=== PATIENT | female | born 1960 | race Caucasian/White ===

== ENCOUNTER 2019-08-05 08:05 | Day surgery (SDC) | payer OTHER ==
[2019-07-26 14:40] LABS: HEMATOCRIT 35.8 % (37.0-47.0); MCH 29.8 pg (26.0-34.0); MCHC 33.5 g/dL (28.0-37.0); RBC 4.02 mil/uL (4.20-5.00); WBC 8.4 thou/uL (4.0-11.0)
[2019-07-26 14:43] LABS: URINE BILIRUBIN NEGATIVE (Negative); URINE BLOOD NEGATIVE (Negative); URINE CLARITY CLEAR; URINE COLOR YELLOW; URINE GLUCOSE-RANDOM* NEGATIVE (Negative); URINE KETONES NEGATIVE (Negative); URINE LEUKOCYTES-REFLEX NEGATIVE (Negative); URINE NITRITE-REFLEX NEGATIVE (Negative); URINE PROTEIN (DIPSTICK) NEGATIVE (Negative); URINE SPECIFIC GRAVITY >= 1.030 (1.005-1.035); URINE UROBILINOGEN 0.2 E.U./dl (0.2-1.0)
[2019-07-26 14:50] LABS: ALBUMIN 3.7 g/dL (3.4-5.0); CALCIUM 8.3 mg/dL (8.5-10.1); CREATININE 0.9 mg/dL (0.6-1.0); POTASSIUM 4.6 mmol/L (3.5-5.1)
[2019-07-26 14:53] LABS: PROTIME 9.4 Seconds (9.3-11.4)
--- NOTE | 2019-07-26 15:26 | EKG ---
[facility] [place] [address] ELECTROCARDIOGRAM REPORT Name: AMBERDOLORES RUBEN Room #: PRE [facility] M.R.#: [id number] Admission: Attend Phys: Bobby Knox MD Discharge: Date of : 62 Report #: [id number] THIS REPORT FOR: cc: Manohar Nava MD, Darren E. MD Couchonnal,Kirill Yu MD ~ THIS REPORT FOR: //name// [facility] Test Date: 2019-07-26 Test Time: 13:59:11 Pat Name: DOLORES CLARK Department: Room: Gender: F Department Clerk: Brayan GUDINO : 1960 Requested By: Bobby Knox Order Number: [id number] MD: Kirill Barlow Measurements Intervals [place] Rate: 84 P: 26 DE: 195 QRS: 3 QRSD: 90 T: 18 QT: 353 QTc: 418 Interpretive Statements Sinus rhythm Left ventricular hypertrophy No previous ECG available for comparison Electronically Signed On 07-26-2019 15:25:24 DIESEL ENGINE MECHANIC by Kirill Barlow [email or web address] <ELECTRONICALLY SIGNED> By: Kirill Barlow MD 07/26/19 1525 [id number] Kirill Barlow MD /GERMÁN
[~2019-08-05] VITALS: Ht 162.6 cm; Wt 80.3 kg
[~2019-08-05 08:05] MED LIST: ABILIFY10 MG PO; ADVIL200 M3 PO; AMITRIPTYLINE H25 M2 PO; CLEOCIN HCL150 MG PO; DIAZEPAM 5 MG5 M1 PO; DIOVAN320 MG PO; DIOVAN40 MG; DIPHENHIST50 MG PO; DULOXETINE HCL60 MG PO; HYDROCODON-ACE1 EAC8 PO; HYDROCODONE-AP1 EAC6 PO; LANSOPRAZOLE30 MG PO; LEXAPRO 10 MG T10 M1 PO; MOBIC15 MG PO; MULTI-VITAMIN1 EAC5 PO; PANTOPRAZOLE SO40 M1 PO; PHENERGAN 25 MG25 MG PO; PREVACID15 MG PO; RESTORIL15 MG PO; RIZATRIPTAN10 M1 PO; RIZATRIPTAN5 MG PO; SINGULAIR 10 MG10 M1 PO; TRAMADOL 50 MG50 MG PO; ZOFRAN ODT4 MG PO
[2019-08-05 08:55] VITALS: BP 157/66
[2019-08-05 14:00] VITALS: BP 127/82
[2019-08-05 19:06] VITALS: BP 125/70
--- NOTE | 2019-08-05 19:59 | NUR ---
ASSUMED CARE OF THE PT AT 1400. PT IS UP TO BSC, R LEG IS VERY WEAK UPON STANDING. PT IS RA. REG DIET. R FA DRY AND INTACT. MODESTO LUIS, SCD'D AND POLAR PACK AND PLCAE. FALL PRECAUTIONS IN PLACE, BED IN THE LOWEST POSITION AND CALL LIGHT IS IWTHIJoe GONZALES. WILL CONTINUE TO MONITOR THE PT.
--- NOTE | 2019-08-06 03:42 | NUR ---
ASSESSED AT PT A&OX4 DENIES PAIN. IV INTACT AND FLUIDS INFUISING. UP WITH ASSISTX1 TO BSC WITH WALKER. SCD'S, POLAR PACK AND DRESSING INTACT ON RT KNEE. FALL PREC IN PLACE AND CALL IGHT IN REACH WILL CONT WITH POC TILL EOS.
[2019-08-06 04:09] VITALS: BP 112/57
[2019-08-06 05:18] LABS: HEMATOCRIT 30.6 % (37.0-47.0); HEMOGLOBIN 9.9 gm/dL (12.0-15.0); MCH 29.1 pg (26.0-34.0); MCHC 32.3 g/dL (28.0-37.0); MCV 90.2 fL (80.0-100.0); RBC 3.4 mil/uL (4.20-5.00); WBC 15.5 thou/uL (4.0-11.0)
[2019-08-06 07:45] VITALS: BP 118/62
[2019-08-06 08:03] VITALS: BP 118/62
--- NOTE | 2019-08-06 10:14 | NUR ---
PT CARE ASSUMED AT 0700. A&Ox4. MAURIZIO DRESSING INTACT. SCD'S AND POLAR PACK IN PLACE. PT IS NOT COMPLAINING OF ANY PAIN AND HAS ONLY RECEIVED A DOSE FOR PT. IV IS PATENT WITH NO REDNESS OR SWELLING. POST OP FLUIDS INFUSING. PT IS UP TO THE BATHROOM WITH STANDBY AND A WALKER. FALL PROTOCOL IN PLACE. CALL LIGHT IN REACH. IN THE ROOM. MAURIZIO DRESSING INTACT WITH NO DRAINAGE.
[2019-08-06] MEDS ORDERED: NEURONTIN 300300 M1 PO (12:08)
[2019-08-06] MEDS ORDERED: ASPIR 8181 MG PO (12:08)
[2019-08-06 12:11] VITALS: BP 118/62
--- NOTE | 2019-08-06 14:14 | NUR ---
PT ADMITTED RELATED TO RT UNICOMPARTMENTAL KNEE REPLACEMENT. CM REVIEWED CHART AND SPOKE WITH CARE TEAM. CM MET WITH PT AT BEDSIDE THIS DAY. PT IS A&O X4. CM ROLE INTRODUCED. PT INDICATED SHE LIVES IN A HOUSE WITH HER SPOUSE WITH NO STEPS TO ENTER AND NO STEPS INSIDE. PT INDICATED SHE HAS A CANE AND FWW FOR HOME USE. PT INDICATED SHE IS SET UP WITH OP PT AT [facility] IN [place]. PT INDICATED SHE PLANS TO RETURN HOME THIS DAY. NO OTHER CM INTERVENTION INDICATED. CASE CLOSED.
--- NOTE | 2019-08-06 14:56 | NUR ---
I have reviewed and concur with student documentation.
--- NOTE | 2019-08-07 12:28 | O ---
[facility] [place] [address] OPERATIVE REPORT Name: DOLORES CLARK Room #: DE[facility] M.Herbert.#: [id number] Admission: 08/05/19 Attend Phys: Bobby Knox MD Discharge: 08/06/19 Date of : 62 Report #: [id number] THIS REPORT FOR: cc: Manohar Nava MD, Darren E. MD Abraham,Bobby Kim MD ~ CC: Manohar Knox DATE OF SERVICE: 08/05/2019 PREOPERATIVE DIAGNOSIS: Right knee medial compartment osteoarthritis. POSTOPERATIVE DIAGNOSIS: Right knee medial compartment osteoarthritis. PROCEDURE: Right medial compartment knee arthroplasty using Navio for robotic assistance. SURGEON: Bobby Knox M.D. VENEER GLUER: Perlita Christy PA-C. INDICATIONS FOR VENEER GLUER: Throughout the case, extensive retraction and manipulation of the knee was required. This was afforded to me by my market research assistant. ANESTHESIA: LMA. TOURNIQUET TIME: 43 minutes. IMPLANTS: Benitez and Nephew size 4 Journey II BCS Oxinium medial femoral component, size 2 tibia, size 10 polyethylene. ESTIMATED BLOOD LOSS: 25 mL. COMPLICATIONS: None. SPECIMENS: None. CONDITION UPON LEAVING THE OPERATING ROOM: Stable. INDICATIONS FOR PROCEDURE: The patient is a 59-year-old female with severe right knee medial compartment osteoarthritis. She had failed conservative measures for this and after discussion with her, she elected for right medial compartment knee arthroplasty. DESCRIPTION OF PROCEDURE: Risks, benefits, alternatives and complications were [facility] [address] [place] [address] OPERATIVE REPORT Name: DOLORES CLARK Room #: DEP [facility] M.Herbert.#: [id number] Admission: 08/05/19 Attend Phys: Bobby Knox MD Discharge: 08/06/19 Date of : 62 Report #: [id number] discussed in detail with the patient including but not limited to risk of anesthesia; risk of damage to nerves, arteries, blood vessels; risk for infection, bleeding; risk for continued knee pain and need for reoperation. Informed consent was obtained from the patient. Right knee was appropriately marked in the preoperative holding area. IV Ancef was given for preoperative antibiotics. Adductor canal block was placed by Anesthesia. She was brought to the operating room and placed in supine position on operating room table. LMA anesthesia was induced without complication. Tourniquet was placed on the right thigh. Right lower extremity was prepped and draped in normal sterile fashion. Timeout was performed properly identifying the patient and procedure as well as the instrumentation and implants. All in the operating room were in agreement. Right lower extremity was exsanguinated, tourniquet was inflated. Tourniquet time was 43 minutes. Standard approach to the medial compartment was then made with 10 blade through the skin. Dissection was taken down sharply to the fascia and deep flaps were developed medially and laterally. Fresh 10 blade was used to make a medial parapatellar arthrotomy and the knee was inspected. There was severe medial compartment osteoarthritis. Lateral compartment and patellofemoral compartments were well maintained. ACL was intact. It was decided to proceed with medial compartment arthroplasty. Reference pins were placed in the femur and the tibia. The knee was then digitally mapped using the Navio system. Intraoperative plan was made and we sized the size 4 femur and a size 2 tibia with a size 10 spacer. After acceptance of the intraoperative plan, the femoral and tibial resections were made with a Navio bur. The remainder of the medial meniscus was removed with Bovie cautery. The tibia was sized, found to be a size 2. A size 2 tibial trial was pinned and drilled. A size 4 femoral trial was placed. This was then trialled with a size 10 polyethylene. Knee was taken through range of motion, found to have a millimeter laxity medially throughout range of motion with good stability. Trial components were removed. Bony ends were thoroughly irrigated with normal saline. A final size 2 tibia, size 4 Journey II BCS Oxinium medial femoral component were cemented in place using standard cementation techniques. While the cement cured, a periarticular injection consisting of morphine, ropivacaine, epinephrine and Toradol was placed around the knee joint capsule. After the cement cured, a final size 10 polyethylene was placed. A gram of vancomycin was placed deep in the joint. Fascia was closed with 0 Vicryl, skin was closed with 2-0 Vicryl, 3-0 Monocryl. Dermabond and a MAURIZIO dressing was applied. The patient tolerated this procedure well and went to recovery room under care of anesthesia postoperatively. <ELECTRONICALLY SIGNED> By: Bobby Knox MD 08/07/19 1228 [id number] Bobby Knox MD /nt
== END 2019-08-06 13:14 | disposition home or self-care (01) ==
LOC: OR 08:05 → TBA 08:06 → OR 08:54 → 4S 15:33 → OR 19:36 → ENTRNSPT 08-06 12:51 → EDTRNSPTSTS 08-06 12:55 → OR 08-06 13:14
PROVIDERS: Orthopaedic Surgery
DX: M17.11 Unilateral primary osteoarthritis, right knee (principal); F32.9 Major depressive disorder, single episode, unspecified; F41.9 Anxiety disorder, unspecified; F17.210 Nicotine dependence, cigarettes, uncomplicated; K21.9 Gastro-esophageal reflux disease without esophagitis; Z98.890 Other specified postprocedural states; Z79.899 Other long term (current) drug therapy; Z79.82 Long term (current) use of aspirin
CPT/HCPCS: 10102; 50010; 50101; 50415; 50954; 51130; 51225; 51320; 52001; 52282; 53078; 53370; 54118; 56527; 56528; 57095; 57103; 57110; 57127; 57180; 62110; 62900; 64043; 65060; 70005

== ENCOUNTER 2020-01-13 17:04 | Inpatient (IN) | payer OTHER ==
[~2020-01-13] VITALS: Ht 165.1 cm; Wt 95.8 kg
[~2020-01-13 17:04] MED LIST changes: +ASPIR 8181 MG PO; +NEURONTIN 300300 M1 PO
[2020-01-13 17:32] VITALS: BP 120/55
[2020-01-13 18:00] LABS: HEMOGLOBIN 11.4 gm/dL (12.0-15.0); MCH 25.3 pg (26.0-34.0); RBC 4.52 mil/uL (4.20-5.00)
[2020-01-13 18:02] LABS: HEMATOCRIT 34.2 % (37.0-47.0); MCHC 33.4 g/dL (28.0-37.0); MCV 75.7 fL (80.0-100.0); PLATELET COUNT 613 thou/uL (150-400); RDW 19.4 % (10.5-14.5)
[2020-01-13 18:04] LABS: ANION GAP 14 mmol/L (7-16); BUN 14 mg/dL (7-18); CHLORIDE 99 mmol/L (98-107); CO2 23 mmol/L (21-32); GLUCOSE 130 mg/dL (74-106); POTASSIUM 3.4 mmol/L (3.5-5.1); SODIUM 136 mmol/L (136-145); WBC 1.2 thou/uL (4.0-11.0)
[2020-01-13 18:13] LABS: BE(vivo) -3.4 mmol/L (-2 to +3); HCO3 20.5 mmol/L (22.0-26.0); PCO2 33.3 mmHg (35.0-45.0); PO2 78.5 mmHg (80.0-100.0); pH 7.408 (7.360-7.450); sO2 95.8 % (92.0-98.0)
[2020-01-13 18:14] LABS: ALBUMIN 2.6 g/dL (3.4-5.0); SGOT 189 U/L (15-37); SGPT 70 U/L (30-65); TOTAL BILIRUBIN 0.5 mg/dL (0.2-1.0); TOTAL PROTEIN 6.6 g/dL (6.4-8.2); TROPONIN-I <0.06 ng/mL (<0.06)
[2020-01-13] MEDS ORDERED: LUNESTA3 MG PO (18:37)
[2020-01-13] MEDS ORDERED: METAXALL800 MG PO (18:38)
[2020-01-13 18:40] LABS: ABSOLUTE NEUTROPHILS 0.3 thou/uL (1.4-8.2); ATYPICAL LYMPHS 6 %; METAMYELOCYTES 1 %; NUCLEATED RBCS 1 /100WBC
[2020-01-13 18:42] LABS: ANISOCYTOSIS 1+; BURR CELLS 1+; LARGE PLATELETS OCCASIONAL; OVALOCYTES FEW; POIKILOCYTOSIS 1+
--- NOTE | 2020-01-13 19:42 | NUR ---
PAPO CLARK - ( IS AN RT) WOULD LIKE UPDATES OF CRITICAL LABS/ POC WHEN AVAILABLE: [phone]
--- NOTE | 2020-01-13 20:06 | NUR ---
ON PHONE WITH FAMILY MEMBER WHO STATES SHE IS REQUESTING HOME MEDICATIONS FOR PAIN.
--- NOTE | 2020-01-13 21:33 | NUR ---
SPOKE W/ PT'S BROTHER AND TO UPDATE ON POC
--- NOTE | 2020-01-13 22:40 | NUR ---
FIRST ATTEMPT AT REPORT CALLED NOW
[2020-01-13 22:44] VITALS: BP 140/66
[2020-01-14 01:03] LABS: HEMOGLOBIN 10.2 gm/dL (12.0-15.0)
[2020-01-14 01:05] LABS: HEMATOCRIT 30.1 % (37.0-47.0); MCH 25.8 pg (26.0-34.0); MCV 75.8 fL (80.0-100.0); RBC 3.97 mil/uL (4.20-5.00); RDW 18.9 % (10.5-14.5)
[2020-01-14 01:06] LABS: CALCIUM 7.3 mg/dL (8.5-10.1); CREATININE 0.8 mg/dL (0.6-1.0); POTASSIUM 3.8 mmol/L (3.5-5.1)
[2020-01-14 01:07] LABS: WBC 0.7 thou/uL (4.0-11.0)
--- NOTE | 2020-01-14 01:10 | NUR ---
notified BOLA OF PTS CRITICAL WBC NO NEW ORDERS
--- NOTE | 2020-01-14 01:58 | NUR ---
SPOKE WITH PULMONOLOGY REGARDING PT. NO NEW ORDERS UNTIL COVID TEST RESULTS ARE IN
--- NOTE | 2020-01-14 03:35 | NUR ---
SPOKE WIH JAKYOA SPOUSE AND PAPO OROURKE, UPDATE ON PT'S PLAN OF CARE GIVEN.
--- NOTE | 2020-01-14 05:49 | NUR ---
MARLI OROURKE CALLED AND UPDATE GIVEN ON PT CARE AND ADMISSION. PT MADE AWARE.
--- NOTE | 2020-01-14 08:01 | EKG ---
[facility] [place] [address] ELECTROCARDIOGRAM REPORT Name: DOLORES CLARK Room #: 170-23 ADM IN M.R.#: [id number] Admission: 01/13/20 Attend Phys: Gunnar Ibrahim MD Discharge: Date of : 62 Report #: [id number] THIS REPORT FOR: cc: Manohar Nava MD, Darren E. MD Lundgren,Bry Bravo MD [facility] ~ THIS REPORT FOR: //name// [facility] ED Test Date: 2020-01-13 Test Time: 18:42:19 Pat Name: DOLORES CLARK Department: Room: 170 Gender: F Wood Drill Operator: jonna : 1960 Requested By: Marifer Jaramillo Order Number: [id number] MD: Bry Hills Measurements Intervals [place] Rate: 94 P: 29 MO: 185 QRS: -5 QRSD: 100 T: 129 QT: 428 QTc: 536 Interpretive Statements Sinus rhythm Abnormal R-wave progression, early transition Left ventricular hypertrophy Nonspecific T abnrm, anterolateral leads Prolonged QT interval Compared to ECG 07/26/2019 13:59:11 T wave abnormality is now present Prolonged QT interval now present Electronically Signed On 01-14-2020 8:01:27 CDT by Bry Hills [email or web address] <ELECTRONICALLY SIGNED> By: Bry Hills MD, [facility] 01/14/20800 41 41 Bry Hills MD, [facility] /EPI
--- NOTE | 2020-01-14 08:48 | NUR ---
HOLD ACKNOWLEDGE DONE TO REQUEST ALL THE MORNING MEDS FROM THE PHARMACY.
--- NOTE | 2020-01-14 09:51 | NUR ---
CALL PHARMACY TO INQUIRE ABOUT THE MEDS. THE PHARMACIST SAID HE WOULD BE SENDING SHORTLY.
[2020-01-14 15:36] VITALS: BP 140/76
--- NOTE | 2020-01-14 18:11 | NUR ---
CALLED RT TO REQUEST PADDING FOR THE PT BI-PAP MASK. RT SAID THEY WOULD BRING IN ON THIER NEXT ROUND.
[2020-01-14 19:07] LABS: BE(vivo) -1.1 mmol/L (-2 to +3); HCO3 23.6 mmol/L (22.0-26.0); PCO2 39.2 mmHg (35.0-45.0); PO2 68.6 mmHg (80.0-100.0); pH 7.397 (7.360-7.450); sO2 93.8 % (92.0-98.0)
[2020-01-15] VITALS (10 sets, daily range): BP systolic 88–150; BP diastolic 32–89
--- NOTE | 2020-01-15 02:56 | NUR ---
GRAM + COCCI IN CULTURE, WILL NOTIFY OCCUPATIONAL HEALTH NURSING DIRECTOR.
[2020-01-15 05:39] LABS: BE(vivo) 0.6 mmol/L (-2 to +3); HCO3 24.5 mmol/L (22.0-26.0); PCO2 36.5 mmHg (35.0-45.0); PO2 59.5 mmHg (80.0-100.0); pH 7.445 (7.360-7.450)
[2020-01-15 06:07] LABS: HEMATOCRIT 30.3 % (37.0-47.0); HEMOGLOBIN 10.1 gm/dL (12.0-15.0); MCH 25.5 pg (26.0-34.0); MCHC 33.4 g/dL (28.0-37.0); MCV 76.4 fL (80.0-100.0); PLATELET COUNT 550 thou/uL (150-400); RBC 3.97 mil/uL (4.20-5.00)
[2020-01-15 06:13] LABS: WBC 1.2 thou/uL (4.0-11.0)
[2020-01-15 06:23] LABS: ALBUMIN 2.5 g/dL (3.4-5.0); CREATININE 0.7 mg/dL (0.6-1.0); TOTAL BILIRUBIN 0.4 mg/dL (0.2-1.0); TOTAL PROTEIN 6.1 g/dL (6.4-8.2)
--- NOTE | 2020-01-15 08:49 | NUR ---
SPOKE TO LORENA AT THE HEALTH DEPARTMENT, EXPLAINED PTS CONDITION
--- NOTE | 2020-01-15 11:43 | NUR ---
PT'S ELLA CALLS AND REQUESTS THAT PT DOES NOT GET TRANSFERED. HE VERBALIZES UNDERSTANDING THAT PT MAY BE INTUBATED, THAT SHE HAS AGREED
[2020-01-15 11:52] LABS: ABSOLUTE NEUTROPHILS 0.1 thou/uL (1.4-8.2); ANISOCYTOSIS 1+; ATYPICAL LYMPHS 3 %
[2020-01-15 11:53] LABS: BURR CELLS FEW; OVALOCYTES FEW; POIKILOCYTOSIS 1+
--- NOTE | 2020-01-15 13:38 | NUR ---
PATIENT WAS ON BIPAP THIS MORNING. SHE HAD STATED THAT SHE WAS TIRED AND WANTING TO BE INTUBATED. DR MCGOVERN WAS NOTIFIED AND THE PATIENT WAS INTUBATED.
[2020-01-15 13:56] LABS: BE(vivo) -4.1 mmol/L (-2 to +3); HCO3 20.3 mmol/L (22.0-26.0); PCO2 34.4 mmHg (35.0-45.0); PO2 163.3 mmHg (80.0-100.0); pH 7.389 (7.360-7.450); sO2 99.1 % (92.0-98.0)
--- NOTE | 2020-01-15 14:39 | NUR ---
VASCULAR ACCESS CONSULTED FOR CVAD IN ER. PT HAS REJ WITH MEDS RUNNING. PT'S LABS,MEDS,HISTORY,ORDER AND CONSENT VERIFIED. MEDICAL NECESSITY BY DR MCGOVERN. CHLOE WAS WIDELY PATENT WITH USG. 25CM 6FR TL POWER JACC INSERTED TO 5CM EXTERNAL. BLEEDING AT SITE GAUZE APPLIED. STAT CXR WILL BE ORDERED AFTER TX TO ICU
[2020-01-15] MEDS ORDERED: TEMAZEPAM15 MG PO (15:30)
[2020-01-15] MEDS ORDERED: RAYOS5 MG PO (15:46)
[2020-01-15] MEDS ORDERED: AZITHROMYCIN500 MG PO (15:53)
--- NOTE | 2020-01-15 15:53 | NUR ---
CXR CONFIRMED PLACEMENT OF LIJ. RELEASED FOR IMMEDIATE USE PER PROTOCOL TO AMINA EDMONDSON
--- NOTE | 2020-01-15 18:26 | NUR ---
PT IS IN A NEW ADMIT VIA THE ER, PT HERE WITH A COVID +VE RESULTS. PT WAS IN ER OVERNIGHT. PT INTUBATED TODAY PRIOR TO ARRIVAL TO ICU. PT WITH SLIGHT FEVER. PT IS A GCS OF 7 CURRENTLY AND IS ON SEDATIVES FOR VENT MANAGEMENT. OTHER VSS. PT ON LEVO FOR BLOOD PRESSURE SUPPORT. FAMILY HAVE BEEN UPDATED ON PT CONDITION.
[2020-01-16] VITALS (20 sets, daily range): BP systolic 105–139; BP diastolic 60–82
--- NOTE | 2020-01-16 01:46 | NUR ---
CONSENT TO GIVE PLASMA OBTAINED FROM PT'S , AWAITING TYPE AND SCREEN RESULTS.
[2020-01-16 06:47] LABS: HEMATOCRIT 28.6 % (37.0-47.0); MCV 77.3 fL (80.0-100.0); RBC 3.7 mil/uL (4.20-5.00)
[2020-01-16 06:48] LABS: HEMOGLOBIN 9.5 gm/dL (12.0-15.0); MCH 25.8 pg (26.0-34.0); MCHC 33.3 g/dL (28.0-37.0); RDW 19.2 % (10.5-14.5)
[2020-01-16 06:55] LABS: CALCIUM 7.7 mg/dL (8.5-10.1); CREATININE 0.7 mg/dL (0.6-1.0); POTASSIUM 3.2 mmol/L (3.5-5.1)
[2020-01-16 07:16] LABS: WBC 1.2 thou/uL (4.0-11.0)
--- NOTE | 2020-01-16 15:03 | NUR ---
ASSESSMENT: CM REVIEWED CHART. CM UNABLE TO SPEAK WITH PATIENT SHE IS CURRENTLY ON THE VENTILATOR AND COVID POSITIVE. CM ATTEMPTED TO REACH OUT TO PATIENTS PAPO BUT UNABLE TO REACH AND VM WAS LEFT. CM REVIEWED CHART AND APPEARS PT LIVES AT HOME WITH HER . PTS BROTHER AND SON WERE RECENTLY TESTED POSITIVE FOR COVID AND PT WAS HAVING TROUBLE WITH SHORTNESS OF BREATH AT HOME AND CAME HOSPITAL. PT IS COVID POSITIVE. CM UNABLE TO GATHER MUCH INFORMATION AT THIS TIME. PT WAS RECENTLY HERE IN [place] FOR A KNEE REPLACEMENT AND PER REPORT LIVES AT HOME WITH HER IN A HOUSE. PER REPORT PT HAS NO STEPS AND HAS A FWW AT HOME. PTS PCP IS DR. JANY GREGORIO. CM WILL CONTINUE FOLLOW PATIENT AND AWAIT FURTHER INPUT FROM .
--- NOTE | 2020-01-16 19:48 | NUR ---
PATIENT REMAINS INTUBATED THIS SHIFT. HAVE BEEN ABLE TO TITRATE SOME SEDATION MEDICATION OFF SUCCESSFULLY. PATIENT TOLERATING WELL. TUBE FEEDING STARTED THIS SHIFT PER ORDERS. FAMILY CALLED AND UPDATED TWICE THIS SHIFT. FALL PRECAUTIONS IN PLACE.
[2020-01-17] VITALS (41 sets, daily range): BP systolic 101–157; BP diastolic 49–89
[2020-01-17 03:11] LABS: CALCIUM 7.7 mg/dL (8.5-10.1); CREATININE 0.7 mg/dL (0.6-1.0)
[2020-01-17 03:28] LABS: HEMOGLOBIN 9.4 gm/dL (12.0-15.0); MCV 76.8 fL (80.0-100.0)
[2020-01-17 03:30] LABS: HEMATOCRIT 28.8 % (37.0-47.0); MCHC 32.6 g/dL (28.0-37.0); RBC 3.75 mil/uL (4.20-5.00); RDW 19.2 % (10.5-14.5)
[2020-01-17 03:42] LABS: WBC 1.2 thou/uL (4.0-11.0)
--- NOTE | 2020-01-17 04:50 | NUR ---
PT STABLE ON THE VENTILATOR, LIGHTLY SEDATED, OPENS EYES AND FOLLOWS COMMANDS, FI02 WEANED DOWN TO 50% PT TOLERATING WELL.CONVALESCENT PLASMA CURRENTLY INFUSING.PAPO (PT'S BROTHER ) CALLED AND WAS UPDATED ON PT'S STATUS.
[2020-01-17 10:40] LABS: BE(vivo) -2.4 mmol/L (-2 to +3); HCO3 22.3 mmol/L (22.0-26.0); PCO2 38.1 mmHg (35.0-45.0); PO2 81.8 mmHg (80.0-100.0); pH 7.386 (7.360-7.450)
--- NOTE | 2020-01-17 11:32 | NUR ---
pt remains intubated, tube feed for nutritional support. noted in chart pt following some commands. no anticpated dc over the weekend, will cont following as needed for dc needs.
--- NOTE | 2020-01-17 15:38 | NUR ---
ASSUMED PATIENT CARE AT 0700, PATIENT INTUBATED AND SEDATED ON VERSED, DILAUDID, AND PRECEDEX. PATIENT DROWSY, EASILY AROUSABLE AND NODS APPRORPIATELY TO QUESTIONS. VSS, FI02 DECR FROM 50TO 40%, TOLERATING WELL. WILL CONTINUE TO MONITOR / POC. PATIENT'S CALLED AND UPDATED ON POC BY THIS RN.
[2020-01-18] VITALS (24 sets, daily range): BP systolic 135–156; BP diastolic 67–87
[2020-01-18 03:02] LABS: HEMOGLOBIN 8.9 gm/dL (12.0-15.0)
[2020-01-18 03:04] LABS: HEMATOCRIT 27.4 % (37.0-47.0); MCH 25.2 pg (26.0-34.0); MCHC 32.5 g/dL (28.0-37.0); MCV 77.7 fL (80.0-100.0); PLATELET COUNT 473 thou/uL (150-400); RBC 3.52 mil/uL (4.20-5.00)
[2020-01-18 03:11] LABS: WBC 0.9 thou/uL (4.0-11.0)
[2020-01-18 03:23] LABS: ALBUMIN 2.5 g/dL (3.4-5.0); CALCIUM 7.5 mg/dL (8.5-10.1); CREATININE 0.5 mg/dL (0.6-1.0); POTASSIUM 3.4 mmol/L (3.5-5.1); TOTAL BILIRUBIN 0.4 mg/dL (0.2-1.0); TOTAL PROTEIN 5.5 g/dL (6.4-8.2)
[2020-01-18 03:42] LABS: ABSOLUTE NEUTROPHILS 0.1 thou/uL (1.4-8.2); ANISOCYTOSIS 2+; LARGE PLATELETS FEW; METAMYELOCYTES 7 %; MYELOCYTES 1 %; NUCLEATED RBCS 8 /100WBC
[2020-01-18 03:43] LABS: POLYCHROMASIA 1+
[2020-01-18 04:49] LABS: BE(vivo) -0.9 mmol/L (-2 to +3); HCO3 23.9 mmol/L (22.0-26.0); PCO2 40.2 mmHg (35.0-45.0); pH 7.392 (7.360-7.450)
--- NOTE | 2020-01-18 07:58 | NUR ---
ASSUME CARE 1900. VITALS STABLE. DECREASED SATS NOTED WITH REST AT SHIFT CHANGE. FIO INCREASED TO 85% WITH PEEP TO 8, TO GET PT UP TO MID 90s. EASILY AROUSABLE WITH A SMALL DECREASE IN SEDATION. ASSESSMENT CHARTED. PROGRESSING SLOWLY WITH POC. WBC CONTINUES TO DECREASE AT A CRITICALLY LOW RATE. PLAN IS TO CONTINUE TO MONITOR AND WEAN PT OFF VENT, CONTINUE ABX THERAPY FOR IMPROVED overall healthcare. WILL CONTINUE TO MONITOR AND FOLLOW WITH POC
--- NOTE | 2020-01-18 17:33 | NUR ---
ASSUMED PT CARE AT 0700; PT. SEDATED ON VERSED, PRECEDEX AND DILAUDID. PATIENT AWAKENS WITH CARES, MINIMALLY FOLLOWS COMMANDS. INCR. 02 REQUIREMENTS - FI02 UP TO 90%, PEEP 10 PATIENT DESATS WITH WEANING ATTEMPTS. CALLED AND UPDATED ON STATUS AND POC.
--- NOTE | 2020-01-18 23:04 | NUR ---
RETURNED CALL TO PAPO CLARK, (PT'S ) AND GAVE AN UPDATE. PT CURRENTLY AT 90% FI02 , PEEP 10, SATS 97% WITH NOTICEABLE WORK OF BREATHING. PT IS SEDATED OPENS EYES TO STIMULATION BUT DOES NOT FOLLOW COMMANDS.
[2020-01-19] VITALS (24 sets, daily range): BP systolic 131–165; BP diastolic 70–95
[2020-01-19 03:53] LABS: HCO3 26.8 mmol/L (22.0-26.0); PCO2 48.5 mmHg (35.0-45.0); sO2 95.7 % (92.0-98.0)
[2020-01-19 06:05] LABS: HEMOGLOBIN 9.2 gm/dL (12.0-15.0)
[2020-01-19 06:08] LABS: MCH 25.6 pg (26.0-34.0); MCHC 32.8 g/dL (28.0-37.0); MCV 78.1 fL (80.0-100.0); RBC 3.59 mil/uL (4.20-5.00); RDW 19.7 % (10.5-14.5)
[2020-01-19 06:25] LABS: WBC 1.9 thou/uL (4.0-11.0)
[2020-01-19 06:26] LABS: PLATELET COUNT 569 thou/uL (150-400)
[2020-01-19 06:37] LABS: ALBUMIN 2.7 g/dL (3.4-5.0); CALCIUM 7.7 mg/dL (8.5-10.1); CREATININE 0.7 mg/dL (0.6-1.0); POTASSIUM 3.2 mmol/L (3.5-5.1); TOTAL BILIRUBIN 0.5 mg/dL (0.2-1.0); TOTAL PROTEIN 5.8 g/dL (6.4-8.2)
[2020-01-19 08:49] LABS: ABSOLUTE NEUTROPHILS 0.4 thou/uL (1.4-8.2); ANISOCYTOSIS 2+; NUCLEATED RBCS 3 /100WBC; PLATELET ESTIMATE NORMAL
--- NOTE | 2020-01-19 17:50 | NUR ---
ASSUMMED PT CARE AT APPROXIMATELY 0700. PT SEDATED AND ON VENTILATOR. PT RESPONDS TO PAINFUL STIMULI. VITAL SIGNS STABLE. BLOOD SUGARS STABLE. INFORMED DR. PEARCE OF PT'S MORNING RESIDUAL AMOUNT. DR. PEARCE STATED UNDERSTANDING AND STATED TO HOLD TUBE FEEDINGS. WILL CONTINUE TO MONITOR RESIDUAL. ORDER IMPLEMENTED. PT COMFORTABLE IN BED. PT DENIES HAVING FURTHER CONCERNS.
[2020-01-20] VITALS (22 sets, daily range): BP systolic 132–165; BP diastolic 74–87
[2020-01-20 05:13] LABS: BE(vivo) 5.6 mmol/L (-2 to +3); PCO2 49.5 mmHg (35.0-45.0); PO2 87.5 mmHg (80.0-100.0); pH 7.415 (7.360-7.450); sO2 96.7 % (92.0-98.0)
[2020-01-20 06:41] LABS: HEMATOCRIT 28.7 % (37.0-47.0); HEMOGLOBIN 9.8 gm/dL (12.0-15.0); MCH 26.4 pg (26.0-34.0); MCHC 34.1 g/dL (28.0-37.0); MCV 77.4 fL (80.0-100.0); PLATELET COUNT 526 thou/uL (150-400); WBC 3.5 thou/uL (4.0-11.0)
[2020-01-20 07:16] LABS: ALBUMIN 2.7 g/dL (3.4-5.0); CALCIUM 8.1 mg/dL (8.5-10.1); CREATININE 0.5 mg/dL (0.6-1.0); POTASSIUM 3.4 mmol/L (3.5-5.1); TOTAL BILIRUBIN 0.6 mg/dL (0.2-1.0)
--- NOTE | 2020-01-20 09:00 | NUR ---
chart review. pt remains on vent with tube feeding for nutritional support. consults for hem/onc. will cont following as needed for dc needs.
--- NOTE | 2020-01-20 10:52 | NUR ---
Nutrition: To best meet needs and promote GI tolerance, REC change tube feeding formula to Vital HP to reach 50 mL/hr. Consider initiation of bowel regimen due to no BM x several days reported.
[2020-01-20 13:07] LABS: HEMOGLOBIN 9.2 g/dL (11.1-15.9)
[2020-01-20 14:03] LABS: ABSOLUTE NEUTROPHILS 2.2 thou/uL (1.4-8.2); ANISOCYTOSIS 1+; PLATELET ESTIMATE NORMAL
--- NOTE | 2020-01-20 19:12 | NUR ---
ASSUMED CARE AT 0700. PT STARTED ON BUILD AND RELEASE MANAGER JEVITY AT 15MLS/HR. RESIDUALS TODAY HAVE BEEN 20, 25, 50. PT GIVEN REGLAN X1 TODAY. FERMENTER CHAMPAGNE REC STATED TO SWITCH FROM JEVITY TO VITAL HP WITH A GOAL OF 50MLS/HR. PT CURRENTLY HAS JEVITY AT 15MLS/HR. DR. PEARCE ROUNDED AND STATED TO COMPLETE THIS BOTTLE OF JEVITY AND THEN SWITCH TO VITAL HP. THIS INFORMATION PASSED ON TO NIGHT RN.
--- NOTE | 2020-01-20 23:13 | NUR ---
MOVED PT TO ROOM 245 AT 2200, CARE TRANSFERRED TO VLAD EDMONDSON, UPDATED PAPO CLARK ABOUT THE NEW ROOM. PT WELL SEDATED AND TOLERTATED WELL, RT PRESENT MANAGING THE VENTILATOR. ALL PT'S BELONGINGS SENT WITH PT TO THE NEW ROOM.
[2020-01-21] VITALS (26 sets, daily range): BP systolic 103–177; BP diastolic 55–90
[2020-01-21 06:07] LABS: HEMOGLOBIN 10.1 gm/dL (12.0-15.0); MCH 25.3 pg (26.0-34.0); MCHC 32.6 g/dL (28.0-37.0); MCV 77.6 fL (80.0-100.0); RDW 18.8 % (10.5-14.5); WBC 4.6 thou/uL (4.0-11.0)
[2020-01-21 06:28] LABS: CREATININE 0.6 mg/dL (0.6-1.0); POTASSIUM 3.3 mmol/L (3.5-5.1)
[2020-01-21 08:07] LABS: HIV ANTIBODY Non Reactive (Non Reactive)
--- NOTE | 2020-01-21 08:44 | NUR ---
SEE Wiper FOR ASSESSMENT. PT AWAKENS EASILY WHEN LIGHTENED FROM SEDATION, PROGRESSING TOWARD GOALS FI02 DOWN TO .60 AND PEEP 10. VS WNL. SR ON MONITOR. GOOD UO. TF INFUSING ORDERED, RESIDUALS REMAIN LOW. CONT PLAN OF CARE
--- NOTE | 2020-01-21 15:18 | NUR ---
Patient still requiring heavy mechnical ventilation assistance and is therefore not prgoressing towards goals. Patient remains on Versed and precedex drip. This morning during shift change, patient became awake and tried pulling out her ET but didnt. Patient did manage to pull out her OG tube though. DEBO Montejo, reinserted one and placement was confirmed by XRAY. Tube feeding and oral medications resumed. Patient received new orders for Hydralyzine, due to high BPs. Blood pressure stable since administration.
[2020-01-22] VITALS (55 sets, daily range): BP systolic 92–188; BP diastolic 44–98
[2020-01-22 06:10] LABS: HEMATOCRIT 30.8 % (37.0-47.0); HEMOGLOBIN 10.1 gm/dL (12.0-15.0); MCH 25.4 pg (26.0-34.0); MCHC 32.7 g/dL (28.0-37.0); MCV 77.7 fL (80.0-100.0); RBC 3.96 mil/uL (4.20-5.00); RDW 18.8 % (10.5-14.5); WBC 5.6 thou/uL (4.0-11.0)
--- NOTE | 2020-01-22 06:32 | NUR ---
Around 0400 pt rhythm had been SR/SB majority of night. Pt HR creeped up to 100-130s up and down until around 0540. Pt was satting 91-93% on vent Fio2 50%. Went into pt room and suctioned pt through ETT and orally without much rhythm change. Pt o2 sat did increase to now 97% same FIo2. Got orders for labs and ekg order. Pt ekg SR with PACs. labs sent.
[2020-01-22 06:34] LABS: CREATININE 0.6 mg/dL (0.6-1.0)
[2020-01-22 06:48] LABS: POTASSIUM 3.1 mmol/L (3.5-5.1)
--- NOTE | 2020-01-22 07:54 | EKG ---
[facility] [place] [address] ELECTROCARDIOGRAM REPORT Name: DOLORES CLARK Room #: 245-P ADM IN M.R.#: [id number] Admission: 01/13/20 Attend Phys: Gunnar Ibrahim MD Discharge: Date of : 62 Report #: [id number] THIS REPORT FOR: cc: Manohar Nava MD, Darren E. MD Lundgren,Bry Bravo MD [facility] ~ THIS REPORT FOR: //name// 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: TWYLA : 1960 Requested By: Lakeisha Ross Order Number: [id number] MD: Bry Hills Measurements Intervals [place] Rate: 68 P: 29 IN: 185 QRS: 10 QRSD: 89 T: 34 QT: 377 QTc: 401 Interpretive Statements Sinus rhythm Atrial premature complexes Borderline T abnormalities, anterior leads Compared to ECG 01/13/2020 18:42:19 Atrial premature complex(es) now present Prolonged QT interval no longer present Electronically Signed On 01-22-2020 7:53:48 CDT by Bry Hills [email or web address] <ELECTRONICALLY SIGNED> By: Bry Hills MD, FACC 01/22/20 0753 0553 0553 Bry Hills MD, FAC /EPI
--- NOTE | 2020-01-22 18:32 | NUR ---
INTUBATED SEDATED. PRECEDEX, VERSED AND DIULADID GTT FOR SEDATION. PATIENT OPENS EYES TO VOICE, FOLLOWS SOME COMMANDS OFF AND ON. CALLED TWICE TODAY FOR UPDATES. 50%FIO2 PEEP 10. TUBE FEEDS AT GOAL OF 50ML/HR. LEFT IJ.
[2020-01-23] VITALS (30 sets, daily range): BP systolic 110–166; BP diastolic 64–89
[2020-01-23 06:45] LABS: CALCIUM 7.6 mg/dL (8.5-10.1); CREATININE 0.5 mg/dL (0.6-1.0); POTASSIUM 4.1 mmol/L (3.5-5.1)
--- NOTE | 2020-01-23 18:54 | NUR ---
PATIENT SEDATED WITH PRECEDEX, VERSED AND DILADID. PATIENT AWAKE AND FOLLOWING COMMANDS. WEANED TO 8 PEEP ON VENTILATOR. SPOKE WITH FAMILY X2 TODAY FOR UPDATES. LEFT IJ. 50% FIO2. BOND WITH ADEQUATE URINE OUTPUT.
[2020-01-24] VITALS (23 sets, daily range): BP systolic 99–153; BP diastolic 55–83
[2020-01-24 05:36] LABS: HEMATOCRIT 29.3 % (37.0-47.0); HEMOGLOBIN 9.8 gm/dL (12.0-15.0); MCH 26.3 pg (26.0-34.0); MCHC 33.3 g/dL (28.0-37.0); MCV 79.1 fL (80.0-100.0); RBC 3.71 mil/uL (4.20-5.00); RDW 19.3 % (10.5-14.5)
[2020-01-24 05:47] LABS: CALCIUM 7.4 mg/dL (8.5-10.1); CREATININE 0.5 mg/dL (0.6-1.0); POTASSIUM 3.5 mmol/L (3.5-5.1)
[2020-01-24 09:02] LABS: BE(vivo) 1.6 mmol/L (-2 to +3); HCO3 26.2 mmol/L (22.0-26.0); PCO2 41.2 mmHg (35.0-45.0); PO2 77.1 mmHg (80.0-100.0); pH 7.421 (7.360-7.450); sO2 95.6 % (92.0-98.0)
--- NOTE | 2020-01-24 09:53 | NUR ---
EMAILED SANDOR WITH MED ASSIST TO SCREEN FOR MEDICAID PER [facility] REVIEW ON 01/23/20. ICU CM UPDATED.
--- NOTE | 2020-01-24 14:26 | NUR ---
chart review. pt remains on vent, tube feed for nutritional support. no anticipated dc over weekend will cont following as needed for dc needs.
--- NOTE | 2020-01-24 15:55 | NUR ---
ATTEMPTED TO CPAP TRIAL PS 5/5 FI02 45%, PT ALMOST IMMEDIATELY DESATURATED IN MID 80"S, REQUIRED BAGGING AT 100% TO MEET O2 DEMAND. PT NOW ON PEEP 6, FI02 60%, O2 SAT 93%. SPOKE WITH VIA TELEPHONE REGARDING POC, CPAP TRIAL, DECREASING SEDATION, PT CURRENT MENTATION (FOLLOW COMMANDS, NODS APPROPRITELY Y/N) HE AGREES WITH PLAN AND IS PLEASED WITH PT PROGRESS SO FAR. PT VITAL SIGNS REMAIN STABLE AND IS AFEBRILE.
[2020-01-25] VITALS (24 sets, daily range): BP systolic 108–155; BP diastolic 60–117
[2020-01-25 05:50] LABS: CALCIUM 7.8 mg/dL (8.5-10.1); CREATININE 0.5 mg/dL (0.6-1.0)
--- NOTE | 2020-01-25 09:59 | NUR ---
ASSUMED CARE AT 0700, ASSESSMENT AND VITAL SIGNS COMPLETED PER ICU PROTOCOL. DR. DYANA BOWIE, PLAN OF CARE DISCUSSED, RN WILL CONTINUE TO MONITOR.
[2020-01-26] VITALS (24 sets, daily range): BP systolic 107–145; BP diastolic 34–85
[2020-01-26 06:04] LABS: CALCIUM 7.8 mg/dL (8.5-10.1); CREATININE 0.6 mg/dL (0.6-1.0); POTASSIUM 4.3 mmol/L (3.5-5.1)
--- NOTE | 2020-01-26 07:12 | NUR ---
Spoke to Pt's brother and and updated them about her status and vent settings. will call back later today with the day nurse. no significant changes duriing noc shift
--- NOTE | 2020-01-26 19:27 | NUR ---
PT'S CALLED WAS UPDATED ON PT CONDITION FROM RN. PT CALM TODAY. PT HAD GOOD URINE OUTPUT. PT'S BLUE PORT OF CENTRAL LINE WOULD NOT FLUSH OR DRAW BLOOD. IV TEAM CONSULTED AND CATHFLOWED BLUE PORT. BLUE PORT IS NOW WORKING TO FLUSH AND DRAW BLOOD. PT HAD SMEAR OF BM TODAY BUT NO SIGNIFICANT BOWEL MOVEMENT YET. PT TOLERATING TUBE FEEDING. SEE RESIDUAL CHARTING. PT WAS TURNED SHE WAS ABLE TO TOLERATE. SKIN INTACT.
[2020-01-27] VITALS (24 sets, daily range): BP systolic 116–164; BP diastolic 69–91
[2020-01-27 03:59] LABS: HCO3 28.9 mmol/L (22.0-26.0); PCO2 50.6 mmHg (35.0-45.0); PO2 70.4 mmHg (80.0-100.0); pH 7.374 (7.360-7.450); sO2 93.6 % (92.0-98.0)
[2020-01-27 06:08] LABS: HEMATOCRIT 29.4 % (37.0-47.0); HEMOGLOBIN 9.7 gm/dL (12.0-15.0); MCH 26.5 pg (26.0-34.0); MCHC 33.1 g/dL (28.0-37.0); MCV 80.2 fL (80.0-100.0); RBC 3.66 mil/uL (4.20-5.00); RDW 19.7 % (10.5-14.5); WBC 13.6 thou/uL (4.0-11.0)
[2020-01-27 06:24] LABS: CALCIUM 8.2 mg/dL (8.5-10.1); CREATININE 0.5 mg/dL (0.6-1.0); MAGNESIUM 2.1 mg/dL (1.8-2.4); POTASSIUM 4.2 mmol/L (3.5-5.1)
--- NOTE | 2020-01-27 06:24 | NUR ---
Gave update to both brother and on pt status. no significant events overnight. continue to monitor
--- NOTE | 2020-01-27 09:59 | NUR ---
Nutrition: No recent BM documented. Noted smear on 01/26. REC bowel regimen.
--- NOTE | 2020-01-27 11:14 | NUR ---
SPOKE WITH PATIENT'S , PAPO AND UPDATED HIM ON HER CONDITIONS. QUESTIONS ANSWERED AND REASSURANCE GIVEN.
--- NOTE | 2020-01-27 17:08 | NUR ---
UPDATED PATIENT'S PAPO.
--- NOTE | 2020-01-27 18:43 | NUR ---
Patient is stable and slowly progressing towards outcome goals as evident by, remains sedated and arouses, opens eyes and moves hands around. Monitor showing NSR with occ rare PAC noted. Vent setting unchanged. O2 sat 93 to 97% today. Tolerating tube feedings. Urine output adequate via tlobert.
[2020-01-28] VITALS (18 sets, daily range): BP systolic 111–164; BP diastolic 62–122
[2020-01-28 05:15] LABS: HEMATOCRIT 29.7 % (37.0-47.0); HEMOGLOBIN 9.5 gm/dL (12.0-15.0); MCH 25.7 pg (26.0-34.0); MCHC 32.1 g/dL (28.0-37.0); MCV 80.1 fL (80.0-100.0); RBC 3.71 mil/uL (4.20-5.00); RDW 19.9 % (10.5-14.5); WBC 15.8 thou/uL (4.0-11.0)
[2020-01-28 05:30] LABS: CALCIUM 8.1 mg/dL (8.5-10.1); CREATININE 0.5 mg/dL (0.6-1.0); POTASSIUM 4.6 mmol/L (3.5-5.1)
--- NOTE | 2020-01-28 09:13 | NUR ---
DR. CREWS AND DR. DORSEY ROUNDED. PATIENT RESTLESS ON VERSED, PRECEDEX, AND DILUADED GTT. NOT OXYGENATING WELL WHEN RESTLESS. ORDERS TO CHANGE SEDATION TO PROPOFOL GTT. PRN MORPHINE NEEDED PER DR. CREWS. CONSULTS CALLED TO DR. VICENTE FOR TRACH AND PEG PLACEMENT SINCE PATIENT IS NOT WEENING OFF VENT AND REQUIRING HIGH SUPPORT.
--- NOTE | 2020-01-28 10:42 | NUR ---
pt remains intubated with tube feeding for nutritional support. noted per chart consult for possible trach and peg. will cont following as needed for dc needs.
[2020-01-29] VITALS (55 sets, daily range): BP systolic 75–160; BP diastolic 36–106
[2020-01-29 05:46] LABS: HEMATOCRIT 28.4 % (37.0-47.0); MCH 25.8 pg (26.0-34.0); MCHC 31.6 g/dL (28.0-37.0); MCV 81.6 fL (80.0-100.0); RBC 3.48 mil/uL (4.20-5.00); RDW 20.9 % (10.5-14.5); WBC 20.4 thou/uL (4.0-11.0)
[2020-01-29 05:52] LABS: PROTIME 10.3 Seconds (9.3-11.4)
[2020-01-29 05:58] LABS: CALCIUM 8.2 mg/dL (8.5-10.1); CREATININE 0.5 mg/dL (0.6-1.0); POTASSIUM 3.9 mmol/L (3.5-5.1)
--- NOTE | 2020-01-29 07:41 | NUR ---
DURING NOC SHIFT, PT'S VENT WAS ALARMING IN WHICH RT CHECKED MULTIPLE TIMES. PT HAS COPIOUS SECRETIONS WITH DARK VENUS TINGED SALIVA. WITH PT'S AM CHEST XRAY, IT WAS SHOWING THAT THE ET TUBE WAS OUT OF PLACE WHICH WAS CONFIRMED BY RADIOLOGY @ 645. DR. CREWS WAS PAGED AND RETURN CALL BACK AT 0545 AND UPDATED ON PT'S CONDITION AND SYPTOMS CONCERNING THE VENT. DR. CREWS WILL ADDRESS THE ISSUE THIS AM WHEN HE ROUNDS AND ADDED A ABG TO BE DONE. DR. CREWS IS AWARE THAT PT'S SATS ARE 97% WHEN THE VENT IS NOT ALARMING. WITH RT'S SUGGESTION TO NOT MOVE PT UNTIL ADDRESSED THE ET TUBE AND POSSIBLE REINTUBATION. REPORT GIVEN TO ABELARDO RN AND ALLYSON RN.
--- NOTE | 2020-01-29 08:46 | NUR ---
This RN to bedside. Per report and CXR patients ET is not in the correct placement. Dr. Batista aware and will assess on rounding. May re-intubate today. Patient satting fine. Dark, black drainage from OG tube. No turns per RT and Dr. Batista until ET tube reassessed.
--- NOTE | 2020-01-29 12:05 | NUR ---
Pt extubated and reu-intubated by Dr. Batista at 1045. ET tube secured at 26 at the bite block. OG tube palced at 65 at the lip. CXR confirmed placement. Briefly talked to , Kevon, and updated him on patients care. Told to check in a couple hours.
--- NOTE | 2020-01-29 12:51 | NUR ---
Nurse talked with Dr. Batista in regards to the output of OG tube. The color is dark black with some bright red color. This in conjunction with the down trending Hbg, nurse informed physician. Orders received to flush tube with 200ml, then aspirate back and assess color of contents. To consult GI and hold tube feeding. Nurse informed this to patients primary RN for continuation of care.
--- NOTE | 2020-01-29 12:53 | NUR ---
This RN spoke to Kevon Henderson at 1245 to give him an update. Discussed re-intubation and how patient tolerated procedure. Also went over gtts and vitals with . Patient is recovering from intubation and resting now.
--- NOTE | 2020-01-29 14:39 | NUR ---
Nurse talked with Kevon, patients spouse, he expressed he missed a call from Nan from GI services. Nurse updated him on reasoning for her consult and her call. Then nurse called Nan and she expressed she will call him back. Patients spouse expressed that she had a Esophageal bleed in February 2019 and Mario last year. Nurse asked if she had a scope and he expressed he is not sure what they did. He expressed she takes protonix at home for this.
--- NOTE | 2020-01-29 17:55 | NUR ---
This RN, talked to Kevon Henderson, , and [id number], Kevon Castaneda, at 1745 today. Patients family had questions regarding care. Discussed GI consult, and answered questions about labs. Updated on status and family was very appreciative and understanding. Patient still requiring heavy mechanical assistance and is therefore not progressing towards big goals but remains stable on the ventilator.
[2020-01-30] VITALS (35 sets, daily range): BP systolic 72–137; BP diastolic 34–76
[2020-01-30 03:41] LABS: HEMATOCRIT 26.3 % (37.0-47.0); HEMOGLOBIN 8.1 gm/dL (12.0-15.0); MCH 25.5 pg (26.0-34.0); MCHC 30.7 g/dL (28.0-37.0); MCV 82.8 fL (80.0-100.0); RBC 3.17 mil/uL (4.20-5.00); WBC 21.9 thou/uL (4.0-11.0)
[2020-01-30 04:07] LABS: ALBUMIN 2.1 g/dL (3.4-5.0); CREATININE 0.9 mg/dL (0.6-1.0); POTASSIUM 4.1 mmol/L (3.5-5.1); TOTAL BILIRUBIN 0.3 mg/dL (0.2-1.0); TOTAL PROTEIN 5.7 g/dL (6.4-8.2)
--- NOTE | 2020-01-30 11:24 | NUR ---
This RN talked to patients , Kevon Henderson, at 1050 regarding patients status. He was updated and discussed patients care. Understanding of patients condition. Blood pressure has been on the lower side. Titrating to maintain sedation, normal HR and adequate blood pressures, therefore patient is not progressing towards goals at this time but remains stable.
--- NOTE | 2020-01-30 14:12 | NUR ---
This RN talked to Dr. Batista regarding patients fluctuating heart rate and blood pressure. I expressed when I turned patients Propofol down, her heart rate increases to 120's, 130'2. She becomes fully awake and alert and expresses signs of discomfort. When I turn the Propofol up, her blood pressure drops to systolic 80's-70's. He told me to increase Dilaudid up to 7mL/hr if needed. Will continue to monitor.
--- NOTE | 2020-01-30 17:17 | NUR ---
This RN talked with Kevon Henderson again at 1715 and updated on plan of care. Discussed patients status, vent settings, labs, and vital signs. Pt expressed wishes to facetime patient and is hoping to do this on her phone tomorrow afternoon if possible. Pt remains comfortable and lightly sedated, maintaining pressures and hemodynamic stability. Still requiring heavy mechinical ventilation and monitoring, so patient is not progressing towards ultimate goal.
--- NOTE | 2020-01-30 18:30 | NUR ---
Nurse talked with Dr. Batista in regards to lovenox dose and question GI bleed. Orders for lovenox changed. Nurse also talked with him about gtt titrations and clarification of dilaudid gtt. Orders received for max dose on gtt to be 3mg/hour. Patient has been restless and awake throughout the day, with only intermittent periods of rest. Gag and cough present. Nurse to continue to monitor patient status.
[2020-01-31] VITALS (27 sets, daily range): BP systolic 69–142; BP diastolic 33–76
[2020-01-31 05:44] LABS: HEMATOCRIT 26.6 % (37.0-47.0); HEMOGLOBIN 8.3 gm/dL (12.0-15.0); MCH 25.9 pg (26.0-34.0); MCHC 31.3 g/dL (28.0-37.0); MCV 82.8 fL (80.0-100.0); RBC 3.22 mil/uL (4.20-5.00); RDW 20.8 % (10.5-14.5); WBC 22.5 thou/uL (4.0-11.0)
--- NOTE | 2020-01-31 15:02 | NUR ---
SPOKE WITH PT MULTIPLE TIMES THIS SHIFT. UPDATE PROVIDED ALONG WITH VENT SETTING AND INFORMATION REGARDING MEDICATIONS USED FOR SEDATION AND COMFORT PER HIS REQUEST. SPOUSE STATES THAT HE ONLY WANTS TO RECEIVE TRACH AND PEG TUBE IF SHE STAYS AT [facility] ICU. STATES HE DOES NOT "WANT HER TO GET A TRACH AND THEN BE SHIPPED OFF." REASSURED SPOUSE THAT WE ENSURE THAT PT IS MEDICALLY STABLE PRIOR TO DISCHARGE. INFORMED THAT MOST PATIENTS RECEIVING TRACH AND REQUIRING VENTILATOR DISCHARGE TO [facility] CUTTING MACHINE TENDER ACUTE CARE. SPOUSE REQUESTS TO KNOW WHAT FACILITY. OFFERED FOR HIM TO SPEAK WITH CM. PT SPOUSE CALLED BACK WITHIN THE HOUR AND REQUESTS TO SPEAK WITH PROVIDER. DOES NOT VERBALIZE QUESTIONS TO NURSE. MESSAGE SENT TO PROVIDER REGARDING SPOUSE REQUEST.
--- NOTE | 2020-01-31 15:22 | NUR ---
pt remains intubated with tf for nutritional support. carlitos passed on message to pulmonary md that son debbie has question for MD. carlitos spoke with spouse debbie " yes dr called and we spoke for long time thank you"/debbie. pt possible going to trach and peg on monday. will cont following as needed for dc needs.
[2020-02-01] VITALS (48 sets, daily range): BP systolic 80–137; BP diastolic 35–82
[2020-02-01 05:32] LABS: HEMATOCRIT 23.2 % (37.0-47.0); HEMOGLOBIN 7.3 gm/dL (12.0-15.0); MCHC 31.4 g/dL (28.0-37.0); MCV 82.9 fL (80.0-100.0); RBC 2.8 mil/uL (4.20-5.00); WBC 25.3 thou/uL (4.0-11.0)
--- NOTE | 2020-02-01 12:00 | NUR ---
ASSUMED CARE ON THIS PATIENT AT 0700 FROM [facility] ED[facility]. PATIENT RESTLESS AND PROPOFOL DRIP TITRATED FOR SEDATION AND ELEVATED HEART RATE. AT APPROXIMATELY 1040 SPOKE WITH PATIENT'S BRIEFLY. PATIENT CONTINUES TO HAVE AN ELEVATED HEART RATE 110 TO 120'S. O2 SAT IN THE UPPER 80'S ON FIO2 OF 50%. FIO2 INCREASED TO 60%.
--- NOTE | 2020-02-01 14:00 | NUR ---
PATIENT APPEARS COMFORTABLE ON VENT. BP DIPPING INTO THE UPPER 80'S. PROPOFOL AND DILIDID DRIPS DECREASED.
--- NOTE | 2020-02-01 14:30 | NUR ---
DR CREWS CALLED IN AND DISCUSSED PATIENT'S BP IN THE 80'S AFTER INCREASING SEDATION BUT THEN BRINGING IT DOWN. INFORMED THAT THE PATIENT HAS HAD NO BLOODY STOOLS OR VAG BLEEDING, OG TUBE DRAINAGE TO LIS IS DARK GREEN IN COLOR. NS BOLUS HUNG, OGT IRRIGATED WITH 300 ML OF WATER WITH RETURN OF LIGHT GREEN DRAINAGE. AWAITING LEVOPHED DRIP TO HANG.
--- NOTE | 2020-02-01 17:09 | NUR ---
SPOKE WITH PAPO AND UPDATED HIM ON THE PATIENT'S STATUS. QUESTIONS ANSWERED AND REASSURANCE GIVEN.
--- NOTE | 2020-02-01 19:00 | NUR ---
PATIENT NOT PROGRESSING TOWARDS OUTCOME GOALS PATIENT REMAINS ON LEVOPHED DRIP. SEDATION DECREASED. BP IMPROVED WITH MAP GREATER THAN 65MMHG. URINE OUTPUT ADEQUATE GREATER THAN 30 ML/HR. OGT CONTINUES TO DRAIN DK GREEN DRAINAGE. VENT SETTING UNCHANGED.
[2020-02-01 22:53] LABS: URINE BILIRUBIN NEGATIVE (Negative); URINE BLOOD NEGATIVE (Negative); URINE CLARITY SL CLOUDY; URINE COLOR YELLOW; URINE GLUCOSE-RANDOM* NEGATIVE (Negative); URINE KETONES TRACE (Negative); URINE LEUKOCYTES-REFLEX NEGATIVE (Negative); URINE NITRITE-REFLEX NEGATIVE (Negative); URINE PROTEIN (DIPSTICK) TRACE (Negative); URINE SPECIFIC GRAVITY 1.025 (1.005-1.035); URINE UROBILINOGEN 0.2 E.U./dl (0.2-1.0)
[2020-02-02] VITALS (81 sets, daily range): BP systolic 87–129; BP diastolic 41–81
[2020-02-02 04:52] LABS: ALBUMIN 2.1 g/dL (3.4-5.0); CALCIUM 7.7 mg/dL (8.5-10.1); CREATININE 0.6 mg/dL (0.6-1.0); HEMATOCRIT 24.3 % (37.0-47.0); HEMOGLOBIN 7.5 gm/dL (12.0-15.0); MAGNESIUM 2.1 mg/dL (1.8-2.4); MCH 26.1 pg (26.0-34.0); MCHC 30.8 g/dL (28.0-37.0); MCV 84.6 fL (80.0-100.0); POTASSIUM 4.1 mmol/L (3.5-5.1); RBC 2.88 mil/uL (4.20-5.00); RDW 21.8 % (10.5-14.5); TOTAL BILIRUBIN 0.4 mg/dL (0.2-1.0); TOTAL PROTEIN 6.1 g/dL (6.4-8.2); WBC 23.3 thou/uL (4.0-11.0)
--- NOTE | 2020-02-02 18:18 | NUR ---
ASSUMED CARE AT 0700. RT ADVANCED ETT TO 28 CM AT THE LIP AND SWITCHED OUT VENTILATOR APPROXIMATELY 1200. TUBE FEEDING INITIATED @ 15 ML/HR APPROXIMATELY 1730. UOP WAS 1825. AFEBRILE. VENTILATOR SETTINGS UNCHANGED. NO BM. FAMILY CONTACTED AND THEY WERE UPDATED AND EDUCATED ON THE PLAN OF CARE AND PATIENT CONDITION. ATTEMPTED TO TITRATE LEVOPHED AND PATIENT DID NOT TOLERATE. LOVENOX RESUMED. NO COFFEE GROUND EMESIS. PATIENT SLOWLY PROGRESSING TOWARDS PLAN OF CARE.
--- NOTE | 2020-02-02 23:50 | NUR ---
PT MOVED TO NEW ICU ROOM (#[id number]) AROUND 1999. PT REMAINS SEDATED FOR VENT MANAGEMENT. SHE DID NOT TOLERATE SEDATION VACATION, SHE BECAME TACHYCARDIC WITH HR 120S-140S. HR IMPROVED WHEN SEDATION WAS RESUMED. SHE IS EASILY ARROUSABLE TO VERBAL OR TACTILE STIMULI. PT REMAINS ON LEVOPHED GTT FOR BP MANAGEMENT. AFEBRILE. TF VIA OGT, NO RESIDUALS. BOND TO DD WITH GOOD URINE OUTPUT. TRANSFERED PT CARE TO ANOTHER DIRECTOR OF REIMBURSEMENT AROUND 2300.
--- NOTE | 2020-02-02 23:59 | NUR ---
1326 - SPOKE WITH PATIENT'S BROTHER PAPO. UPDATED HIM ON PT ROOM TRANSFER. HE WAS ALSO UPDATED ON PT STATUS. HE WILL SHARE THE UPDATE WITH PT'S .
[2020-02-03] VITALS (46 sets, daily range): BP systolic 81–127; BP diastolic 41–75
[2020-02-03 07:05] LABS: HEMATOCRIT 23.6 % (37.0-47.0); HEMOGLOBIN 7.3 gm/dL (12.0-15.0); MCH 26.4 pg (26.0-34.0); MCV 85.1 fL (80.0-100.0); RBC 2.77 mil/uL (4.20-5.00); RDW 21.4 % (10.5-14.5); WBC 27.2 thou/uL (4.0-11.0)
[2020-02-03 08:02] LABS: CALCIUM 7.7 mg/dL (8.5-10.1); CREATININE 0.5 mg/dL (0.6-1.0); MAGNESIUM 1.9 mg/dL (1.8-2.4); POTASSIUM 3.1 mmol/L (3.5-5.1); TOTAL BILIRUBIN 0.3 mg/dL (0.2-1.0); TOTAL PROTEIN 5.3 g/dL (6.4-8.2)
[2020-02-03 09:35] LABS: BE(vivo) 7.1 mmol/L (-2 to +3); HCO3 36.3 mmol/L (22.0-26.0); PO2 107.4 mmHg (80.0-100.0); sO2 96.5 % (92.0-98.0)
[2020-02-03 09:36] LABS: PCO2 92.4 mmHg (35.0-45.0); pH 7.212 (7.360-7.450)
--- NOTE | 2020-02-03 10:44 | NUR ---
Nutrition: REC Vital HP to reach goal rate of 30 mL/hr with current propofol demands. REC add 1 packet benerprotein powder in each water flush ( current order 200 mL QID )
--- NOTE | 2020-02-03 14:36 | NUR ---
[facility] called on in network with pt insurance. pt did not get trach and peg today. remains on vent with tf for nutritional support, will cont following as needed for dc needs.
[2020-02-03 21:25] LABS: BE(vivo) 8.3 mmol/L (-2 to +3); HCO3 37.6 mmol/L (22.0-26.0); PO2 99.7 mmHg (80.0-100.0); sO2 95.9 % (92.0-98.0)
[2020-02-03 21:26] LABS: PCO2 92.7 mmHg (35.0-45.0); pH 7.226 (7.360-7.450)
[2020-02-04] VITALS (41 sets, daily range): BP systolic 86–144; BP diastolic 41–77
[2020-02-04 04:08] LABS: BE(vivo) 10.4 mmol/L (-2 to +3); HCO3 39.8 mmol/L (22.0-26.0); PO2 112.5 mmHg (80.0-100.0)
[2020-02-04 04:09] LABS: PCO2 93.9 mmHg (35.0-45.0); pH 7.245 (7.360-7.450)
[2020-02-04 05:37] LABS: HEMATOCRIT 25.6 % (37.0-47.0); HEMOGLOBIN 7.9 gm/dL (12.0-15.0); MCH 26.2 pg (26.0-34.0); MCHC 30.9 g/dL (28.0-37.0); MCV 84.7 fL (80.0-100.0); PLATELET COUNT 70 thou/uL (150-400); RBC 3.02 mil/uL (4.20-5.00); RDW 21.2 % (10.5-14.5)
[2020-02-04 05:56] LABS: WBC 12.2 thou/uL (4.0-11.0)
[2020-02-04 06:03] LABS: ALBUMIN 1.8 g/dL (3.4-5.0); CALCIUM 7.8 mg/dL (8.5-10.1); CREATININE 0.5 mg/dL (0.6-1.0); TOTAL BILIRUBIN 0.3 mg/dL (0.2-1.0); TOTAL PROTEIN 5.8 g/dL (6.4-8.2)
[2020-02-04 06:12] LABS: POTASSIUM 2.4 mmol/L (3.5-5.1)
--- NOTE | 2020-02-04 07:04 | NUR ---
gave updates to Kevon (spouse) and Kevon (brother). ET was withdrawn 2cms with chest xray verification. Dr. field rounded on pt at midnight. plans are to trach and peg today. low potassium of 2.4 with critical called to [employer] [employer] with replete orders. continue with plan of care
--- NOTE | 2020-02-04 11:36 | NUR ---
cm notified by [facility], if she needs [facility] will need to get letter of agreement with their insurance. will cont following as needed for dc needs. possible trach and peg when md order.
[2020-02-04 13:18] LABS: ABSOLUTE NEUTROPHILS 10.4 thou/uL (1.4-8.2); ANISOCYTOSIS 2+
[2020-02-04 13:19] LABS: POLYCHROMASIA OCCASIONAL
[2020-02-04 13:31] LABS: MACROCYTES FEW; MICROCYTES FEW
--- NOTE | 2020-02-04 15:58 | NUR ---
PATIENT LEAVES FOR OR AT 1123 FOR TRACH AND PEG PLACEMENT. PATIENT RETURNS FROM OR AT 1325. RESTRAINTS FOR HOURS 1200 NOT DOCUMENTED DUE TO PATIENT BEING OFF FLOOR.
--- NOTE | 2020-02-04 19:58 | NUR ---
trach and peg placed today. patient to or at 1130 and returned 1335. family debbie updated. 1 amp D5 given for blood sugar of 41. replacing kcl.
[2020-02-05] VITALS (31 sets, daily range): BP systolic 89–124; BP diastolic 25–71
[2020-02-05 02:46] LABS: HEMATOCRIT 24.9 % (37.0-47.0); MCH 26.4 pg (26.0-34.0); MCV 82.5 fL (80.0-100.0); RBC 3.02 mil/uL (4.20-5.00); RDW 20.9 % (10.5-14.5); WBC 14.7 thou/uL (4.0-11.0)
[2020-02-05 03:05] LABS: ALBUMIN 1.7 g/dL (3.4-5.0); CREATININE 0.4 mg/dL (0.6-1.0); PHOSPHORUS 1.5 mg/dL (2.5-4.9)
[2020-02-05 03:06] LABS: POTASSIUM 2.4 mmol/L (3.5-5.1)
[2020-02-05 04:00] LABS: BE(vivo) 13.4 mmol/L (-2 to +3); HCO3 40.5 mmol/L (22.0-26.0); PO2 73.1 mmHg (80.0-100.0); pH 7.372 (7.360-7.450); sO2 93.6 % (92.0-98.0)
[2020-02-05 04:01] LABS: PCO2 71.4 mmHg (35.0-45.0)
--- NOTE | 2020-02-05 11:45 | NUR ---
pt assessed at 0815, vss, pt resting in bed, am care done, potassium being replaced, spoke with and gave update, he verbalized understanding, will monitor
--- NOTE | 2020-02-05 14:01 | NUR ---
per [facility] pt is in her 90days [place]andler with her insurance and will not be active until 03/12/2020 so unable to sinal case agreement. cm notified hospitalist to reach out to spouse debbie to discuss [facility]. in order to go to [facility] per liaison they have to get sinal case agreement with her insurance. jolene jenkins and qamar yesterday. cm visited with debbie who stated " that is fine if dr wants to talk about it but i was told going to keep her here for few days before we transfer to acute facility"/ spouse debbie.
--- NOTE | 2020-02-05 17:01 | NUR ---
FAXED REFERRAL TO [facility] SPOKE WITH DAISY IN ADM SHE RECEIVED REFERRAL AND WILL REVIEW. DP TO FOLLOW.
[2020-02-06] VITALS (78 sets, daily range): BP systolic 67–194; BP diastolic 24–134
[2020-02-06 04:19] LABS: BE(vivo) 14.5 mmol/L (-2 to +3); HCO3 41.6 mmol/L (22.0-26.0); PCO2 71.1 mmHg (35.0-45.0); PO2 97.8 mmHg (80.0-100.0); pH 7.385 (7.360-7.450); sO2 97.1 % (92.0-98.0)
[2020-02-06 05:49] LABS: HEMOGLOBIN 7.8 gm/dL (12.0-15.0); MCH 26.1 pg (26.0-34.0); MCHC 31.4 g/dL (28.0-37.0); MCV 83.1 fL (80.0-100.0); PLATELET COUNT 65 thou/uL (150-400); RBC 3.01 mil/uL (4.20-5.00); RDW 21.4 % (10.5-14.5); WBC 12.2 thou/uL (4.0-11.0)
--- NOTE | 2020-02-06 06:00 | NUR ---
REMAINS TRACHED AND VENTED SEDATED LEVOPHED GTT AT 8 MCG TO KKEP MAP> 60 2500 CC UO THIS SHIFT. LUNGS ESS CLEAR AND DIMINISHED. TRACH OZZING A MOD AMT THICK BLOOD TINGED SECRETIONS. PT CAN GO TO AN LTAC BUT BECAUSE OF INSURANCE SHE WILL NOT BE ACCEPTED UNTIL MARCH. WILL CONT TO MONITOR
[2020-02-06 06:48] LABS: ALBUMIN 1.7 g/dL (3.4-5.0); CALCIUM 7.4 mg/dL (8.5-10.1); CREATININE 0.5 mg/dL (0.6-1.0); TOTAL BILIRUBIN 0.5 mg/dL (0.2-1.0); TOTAL PROTEIN 5.7 g/dL (6.4-8.2)
[2020-02-06 06:52] LABS: POTASSIUM 2.7 mmol/L (3.5-5.1)
--- NOTE | 2020-02-06 08:32 | NUR ---
Recommend increase tube feed rate to 30ml/hr and continue beneprotein, 1 packet in each water flush
[2020-02-06 11:28] LABS: ANISOCYTOSIS 2+; METAMYELOCYTES 1 %; MYELOCYTES 1 %; NUCLEATED RBCS 1 /100WBC
[2020-02-06 14:26] LABS: MAGNESIUM 1.4 mg/dL (1.8-2.4)
[2020-02-06 14:28] LABS: POTASSIUM 2.4 mmol/L (3.5-5.1)
--- NOTE | 2020-02-06 16:56 | NUR ---
jr liaison from [facility]. " debbie want to speak with cm"/jr. cm called him he stated " i want to know why cant go to [facility]"/spouse debbie. cm education on single case agreements and only one who said they would do single case agreement was [facility] " ok thank you, my head is just spinning with all the information. thank you"/debbie. will cont following as needed for dc needs.
--- NOTE | 2020-02-06 19:35 | NUR ---
dr field informed of lab levels and increased urine output, orders recieved to follow potassium and magnesium protocols. talked to 1230 and 1830 code verified updated on patient's condition. Rings sent to security with documentation.
[2020-02-06 22:01] LABS: MAGNESIUM 1.9 mg/dL (1.8-2.4)
[2020-02-06 22:11] LABS: POTASSIUM 2.6 mmol/L (3.5-5.1)
[2020-02-07] VITALS (58 sets, daily range): BP systolic 80–156; BP diastolic 26–103
[2020-02-07 03:59] LABS: BE(vivo) 15.7 mmol/L (-2 to +3); HCO3 40.1 mmol/L (22.0-26.0); PCO2 48.2 mmHg (35.0-45.0); PO2 94.9 mmHg (80.0-100.0); pH 7.538 (7.360-7.450); sO2 97.8 % (92.0-98.0)
[2020-02-07 05:02] LABS: HEMATOCRIT 23.6 % (37.0-47.0); HEMOGLOBIN 7.6 gm/dL (12.0-15.0); MCH 26.2 pg (26.0-34.0); MCHC 32.2 g/dL (28.0-37.0); MCV 81.5 fL (80.0-100.0); PLATELET COUNT 77 thou/uL (150-400); RDW 21.2 % (10.5-14.5); WBC 12.3 thou/uL (4.0-11.0)
[2020-02-07 05:20] LABS: ALBUMIN 1.6 g/dL (3.4-5.0); CALCIUM 7.9 mg/dL (8.5-10.1); CREATININE 0.6 mg/dL (0.6-1.0); TOTAL BILIRUBIN 0.8 mg/dL (0.2-1.0); TOTAL PROTEIN 5.7 g/dL (6.4-8.2)
[2020-02-07 05:22] LABS: POTASSIUM 2.5 mmol/L (3.5-5.1)
[2020-02-07 06:47] LABS: ABSOLUTE NEUTROPHILS 9.7 thou/uL (1.4-8.2); ANISOCYTOSIS 2+; PLATELET ESTIMATE DECREASED
[2020-02-07 06:48] LABS: POLYCHROMASIA OCCASIONAL
--- NOTE | 2020-02-07 07:27 | NUR ---
SPOKE TO PT BROTHER AT 0430, GAVE UPDATE, ALL QUESTIONS ANSWERED. PATIETN FOLLOWS COMMANDS, DENIES PAIN, OCCASIONALLY BECOMING RESTLESS AND TACHYPNEIC. RESTING WELL FOR SEVERAL HOURS. RESIDUALS HIGH, SEE CHARTING. CALLED TO DEVELOPMENT OFFICER WRAPPING MACHINE OPERATOR, ORDERS RECIEVED, KUB OBTAINED, TF REMAINS OFF AT THIS TIME PER ORDERS. SLOW ATTEMPT TO WEAN LEVO, PRESSURES DROPPED TO 80'S/30'S. PRECEDEX WEANED DOWN SLIGHTLY PATIENT TOLERATES.
[2020-02-07 11:17] LABS: MAGNESIUM 1.8 mg/dL (1.8-2.4); PHOSPHORUS 1.2 mg/dL (2.5-4.9)
--- NOTE | 2020-02-07 11:59 | NUR ---
PT'S PAPO CALLED. RN SPOKE WITH HIM AND GAVE PT UPDATE.
--- NOTE | 2020-02-07 14:11 | NUR ---
FAXED CLINICAL UPDATE TO [facility] SPOKE WITH DAISY IN ADM SHE RECEIVED UPDATE. DP TO FOLLOW.
--- NOTE | 2020-02-07 16:24 | NUR ---
cm passed in information that med assist has been giving the ok by spouse debbie to get copy of pt id and insurance information out of pt belonging here with [facility]. [facility] is going to seek for auth rt needing the special agreement letter for [facility]. no anticipated dc over the weekend. dcp [facility]
--- NOTE | 2020-02-07 18:06 | NUR ---
0930. RT ATTEMPTED TO PLACE PT ON CPAP TRIAL. PT IMMEDIATELY BECAME ANXIOUS AND TACHYPNEIC. AND HAD TO BE TURNED RIGHT BACK ON TO VENTILATOR SETTINGS. PT OPENS EYES TO NAME AND CAN NOD HEAD YES OR NO TO SIMPLE QUESTIONS. PT DID NOT TOLERATE TURNING TODAY. EACH ATTEMPT TO TURN PT MADE PT BECOME VERY TACHYPNEIC AND HER O2 SATS WOULD START TO DECREASE. ONCE PT WAS TURNED BACK HER O2 SATS WOULD INCREASE AND HER RESPIRATORY RATES WOULD BEGIN TO DECREASE. PT REMAINS VERY EDEMATOUS AND ARMS AND HEELS ARE FLOATED ON PILLOWS. PT CONTINUES VOID LARGE AMOUNTS OF URINE, SEE I&O. 1230- REPORT GIVEN TO ANURAG.
--- NOTE | 2020-02-07 19:50 | NUR ---
ASSUMED CARE PT APPROX 1245. PT AWAKE, LIGHTLY SEDATED. FOLLOWING COMMANDS. NODS HEAD TO YES/NO QUESTIONS. FAMILY UPDATED THIS SHIFT. UOP REMAINS ADEQUATE. POTASSIUM REPLACED PER ORDERS. PT TACHYPNEIC, ANXIOUS THIS SHIFT. PRN DILAUDID ADMINISTERED PER ORDERS WITH RELIEF. VSS. O2 SATS WNL. PT CURRENTLY IN NAP. WILL PASS ON REPORT TO [facility]EM EDMONDSON
[2020-02-08] VITALS (79 sets, daily range): BP systolic 77–280; BP diastolic 16–181
[2020-02-08 02:45] LABS: MAGNESIUM 1.7 mg/dL (1.8-2.4); POTASSIUM 3.1 mmol/L (3.5-5.1)
--- NOTE | 2020-02-08 07:00 | NUR ---
PATIENT EXPRESSING ANXIETY AT BEGINNING OF SHIFT, DISCUSSION OF STATUS AND NEXT STEPS, STATES UNDERSTANDING WITH NODS. FOLLOWS COMMANDS, RR INCREASING TO 30'S OFF PRECEDEX, HR 90'S. OFF FOR APPROXIMATELY 30 MINUES. DISCUSSED STATUS AND POC WITH BOTH , PAPO AND BROTHER, PAPO.
[2020-02-08 11:34] LABS: MAGNESIUM 2.4 mg/dL (1.8-2.4); POTASSIUM 3.5 mmol/L (3.5-5.1)
--- NOTE | 2020-02-08 16:12 | NUR ---
PATIENT REMAINS AWAKE AND ALERT THROUGH MOST OF THE DAY. ANXIETY NOTED AT TIMES, PATIENT'S RESP. RATE WILL INCREASE TO THE MID TO UPPER THIRTY. 2 MODERATE SIZE LIQUID STOOLS NOTED. TOLERATING HER TRICKLE FEED WITH 0 RESIDUALS NOTED. PATIENT TURNED Q2H FOR COMFORT AND PRESSURE CONTROL. SPOKE WITH PATIENTS THIS AFTERNOON. NO FURTHER CONCERNSA AT THIS TIME. WILL CONTINUE TO MONITOR AND CARE PER PLAN OF CARE.
[2020-02-09] VITALS (95 sets, daily range): BP systolic 63–165; BP diastolic 13–100
[2020-02-09 06:33] LABS: HEMATOCRIT 21.9 % (37.0-47.0); HEMOGLOBIN 7.1 gm/dL (12.0-15.0); MCH 26.7 pg (26.0-34.0); MCHC 32.5 g/dL (28.0-37.0); MCV 82.2 fL (80.0-100.0); RBC 2.67 mil/uL (4.20-5.00); RDW 23.3 % (10.5-14.5); WBC 11.8 thou/uL (4.0-11.0)
[2020-02-09 06:44] LABS: ALBUMIN 1.6 g/dL (3.4-5.0); CALCIUM 7.5 mg/dL (8.5-10.1); CREATININE 0.6 mg/dL (0.6-1.0); MAGNESIUM 1.9 mg/dL (1.8-2.4); PHOSPHORUS 2.2 mg/dL (2.5-4.9); POTASSIUM 3.3 mmol/L (3.5-5.1)
--- NOTE | 2020-02-09 07:03 | NUR ---
ASSESSMENT: PT REMAINS ALERT AND ORIENT TIMES THREE, LIGHTLY SEDATED. FOLLOW SIMPLE COMMANDS. TACHYPNEIC WITH RR HIGH 30'S. DILAUDID PRN GIVEN WITH GOOD RESULTS. BLUE PORT OF IJ IS OCCLUDED. ACTIVASE WILL POSSIBLY BE USED, DAYSHIFT RN AWARE. VENT SETTINGS UNCHANGED. BOND PATENT WITH YELLOW OUTPUT. NO BM THIS SHIFT. PEG TUBE INTACT/PATENT, TOLERATING TF, NO HIGH RESIDUALS. SR PER MONITOR. WILL CONTINUE TO MONITOR.
--- NOTE | 2020-02-09 13:38 | NUR ---
PATIENT REMAINS WITH TRACH AND ON VENT, SLIGHT SEDATION FOR VENT MANAGEMENT. PATIENT IS ABLE TO ANSWER YES/NO QUESTIONS WHEN AWAKE. PATIENT IS NOW RESTRAINED AGAIN SHE REACHED UP AND ALMOST PULLED HER TRACH OUT. UNABLE TO REDIRECT AT THAT TIME SO BILAT SOFT RESTRAINTS WAS PUT ON. PATIENT IS TOLERATING TUBE FEEDINGS WITH LOW TO NO RESIDULES. NO CONCERNS AT THIS TIME. WILL CONTINUE TO MONITOR AND CARE PER PLAN OF CARE.
[2020-02-10] VITALS (66 sets, daily range): BP systolic 85–129; BP diastolic 15–80
[2020-02-10 04:12] LABS: BE(vivo) 5.2 mmol/L (-2 to +3); HCO3 31.9 mmol/L (22.0-26.0); PCO2 60.9 mmHg (35.0-45.0); PO2 77.7 mmHg (80.0-100.0); pH 7.337 (7.360-7.450); sO2 94.4 % (92.0-98.0)
[2020-02-10 06:54] LABS: ABSOLUTE NEUTROPHILS 11.8 thou/uL (1.4-8.2); BASOPHILS 0.5 % (0.0-2.0); HEMATOCRIT 22.3 % (37.0-47.0); LYMPHOCYTES 7.4 % (24.0-44.0); MCH 26.2 pg (26.0-34.0); MCHC 31.3 g/dL (28.0-37.0); MCV 83.5 fL (80.0-100.0); MONOCYTES 4.9 % (1.0-8.0); PLATELET COUNT 134 thou/uL (150-400); POLYS 81.2 % (36.0-66.0); RBC 2.67 mil/uL (4.20-5.00); RDW 23.3 % (10.5-14.5); WBC 14.5 thou/uL (4.0-11.0)
[2020-02-10 07:19] LABS: ALBUMIN 1.5 g/dL (3.4-5.0); CALCIUM 7.9 mg/dL (8.5-10.1); CREATININE 0.6 mg/dL (0.6-1.0); POTASSIUM 3.2 mmol/L (3.5-5.1); TOTAL BILIRUBIN 0.5 mg/dL (0.2-1.0); TOTAL PROTEIN 6.3 g/dL (6.4-8.2)
--- NOTE | 2020-02-10 07:30 | NUR ---
NO SIGNIFICANT EVENTS OVERNIGHT. PT WAS RESTLESS AND APPEARED ANXIOUS UPON INITIAL ASSESSMENT. SYMPTOMS IMPROVED WITH PRN LORAZEPAM. PT REMAINS ON PRECEDEX DRIP AT MAX RATE FOR VENT MANAGEMENT. SHE RESTED WELL DURING THE NIGHT. COMPLETE BED BATH GIVEN. AFEBRILE. SBP> 90 AND MAP >60 WHILE ON LEVOPHED DRIP. REPORT GIVEN TO ONCOMING NURSE.
--- NOTE | 2020-02-10 07:34 | NUR ---
0445 - PT'S BROTHER PAPO CALLED UNIT FOR UPDATE.
[2020-02-10 08:47] LABS: ANISOCYTOSIS 3+
--- NOTE | 2020-02-10 08:54 | NUR ---
Since Propofol has been discontined, new tube feed goal is 45ml/hr. Continue beneprotein packets in water flushes.
--- NOTE | 2020-02-10 10:25 | NUR ---
cm spoke with bedside, rt still needing copy if id and ss card that her say in with her belonging in her room. cm went to see if bedside nurse found them and she did. cm has front and back copy of id and ss card to get to med assist.
--- NOTE | 2020-02-10 12:20 | NUR ---
TALKED WITH PAPO ON PHONE. UPDATE ON CONDITION GIVEN
--- NOTE | 2020-02-10 17:30 | NUR ---
TALKED WITH PAPO ON PHONE. UPDATE ON CONDITION GIVEN.
--- NOTE | 2020-02-10 18:07 | NUR ---
NO EVENTS THROUGHOUT THE DAY. VSS ON LEVOPHED. PT SEDATED ON PRECEDEX @ 1 MCG/KG/HR. POTASSIUM REPLACED PER PROTOCOL. ATIVAN GIVEN X1 DUE TO LABORED BREATHING ON VENT. PT RESPONDED WELL. PT DID FOLLOW COMMANDS AND GRASP HANDS FOR ME THROUGHOUT SHIFT.
--- NOTE | 2020-02-10 21:56 | NUR ---
2155 - SPOKE WITH BOTH PATIENT'S AND BROTHER ON THE PHONE. UPDATED PROVIDED ON PT STATUS AND POC.
[2020-02-11] VITALS (47 sets, daily range): BP systolic 103–132; BP diastolic 41–78
--- NOTE | 2020-02-11 07:26 | NUR ---
PT REMAINS SEDATED WITH PRECEDEX FOR VENT MANAGEMENT. PT DOES NOT RESPOND TO PAINFUL OR VERBAL STIMULI. DOES NOT FOLLOW COMMANDS. NO APPARENT PAIN NOTED. LEVO DRIP INFUSING FOR BP SUPPORT. UPON INITIAL ASSESSMENT, TF WAS INFUSING AT 25ML/HR WITH GOAL OF 45 ML/HR. INCREASED RATE TO 35ML/HR PT WAS TOLERATING WELL WITHOUT SIGNIFICANT RESIDUALS. HOWEVER, TF RESIDUAL WAS 300ML DURING 0400 REASSESSMENT; PLACED TF ON HOLD TEMPORARILY AND DAY RN WILL REASSESS. 0415 - PT'S BROTHER (PAPO) CALLED UNIT FOR UPDATE. HE STATED THAT FAMILY IS CONSIDERING COMFORT CARE FOR PATIENT. HE STATED THAT PT'S IS DPOA AND HE IS A LITTLE HESITANT TO MAKE A FINAL DECISION AND WANTS TO TALK TO DR MCGOVERN. PAPO ALSO STATED THAT THEY DO NOT WANT PT TO GO TO AN LTAC ANYMORE. HE STATED THAT PT'S DTR AND OTHER FAMILY MEMBERS ARE IN AGREEMENT THAT PT SHOULD GO ON COMFORT CARE. REPORT GIVEN TO DAY SHIFT RN. PT NOT PROGRESSING TOWARD POC GOALS.
--- NOTE | 2020-02-11 09:42 | NUR ---
cm sent updates to [facility]. also noted in chart family will possible discussing comfort care. will cont following as needed for dc needs.
--- NOTE | 2020-02-11 16:42 | NUR ---
carlitos had voice message requesting to call spouse debbie. cm called him back he was wanting med assist phone number or way to get her paperwork they requested. cm left him know i would leave message for her asking marky to call him. " ok thank you"/debbie. carlitos left message at [phone]
--- NOTE | 2020-02-11 18:38 | NUR ---
NO IMPROVEMENTS IN PATIENT CONDITION TODAY. ATTEMPTED TO WEAN ON LEVOPHED. WEANED FROM 5 TO 4 MCG. INCREASED PRECEDEX SEDATION. ADEQUATE URINE OUTPUT. SPOKE WITH PAPO TODAY FOR PATIENT UPDATE. NO BM. TUBE FEEDS RESTARTED. CURRENTLY AT 30ML/HR.
[2020-02-12] VITALS (44 sets, daily range): BP systolic 67–203; BP diastolic 21–118
--- NOTE | 2020-02-12 06:09 | NUR ---
Talked to both Kevon spouse and Kevon brother about pt's status and they are wanting to proceed with comfort care today. The expressed interest with consulting Dr. Cheung for comfort care which Dr. Batista is aware.
--- NOTE | 2020-02-12 13:47 | NUR ---
CM CONTACTED RAD[facility] EDMONDSON FOR UPDATE: PT IS SCHEDULED FOR PALLIATIVE EXTUBATION TODAY AT 1400.
--- NOTE | 2020-02-12 14:57 | NUR ---
1350 HOURS. THIS SPRING SALVAGE WORKER PROVIDED SUPPPORT FOR THE PATIENT'S PAPO. WE HAD A TIME TIME OF PRAYER AND DID LIFE REVIEW AFTER SHE WAS WEANED OFF THE VENT TO ALLOW HER TO PASS NATURALLY. HER POSSESIONS WERE BAGGED AND SEALED FOR HER TO TAKE WITH HIM. THIS SPRING SALVAGE WORKER WALKED TO SECURITY WITH THE PAPO HE PICKED UP HER SECURED PROPERTY. I WALKED OUTSIDE GAVE THE OUR BROCHURE "WHEN A LOVED ONE DIES, NEXT STEPS." WE DISCUSSED ABOUT CALLING THE HOSPITAL AND ASKING FOR THE SECURITY DEPARTMENT ONCE THEY CHOOOSE A HOME IN WHICH TO RELEASE HER BODY. WE CONCLUDED WITH PRAYER ONCE HIS QUESTIONS WERE ANSWERED AND BEFORE HE LEFT.
--- NOTE | 2020-02-12 17:34 | NUR ---
PATIENT FAMILY DECIDES TO MAKE PATIENT COMFORT CARES. PATIENT OFF VENTILATOR AT 1455. TIME AT BEDSIDE DOOR FOR ONLY 15 MINUTES. PATIENT BELONGINGS SENT WITH TIME . TIME WALKED OUT OF BUILDING VIA EDITOR SOUND. PATIENT PRONOUNCED AT 1506.
--- NOTE | 2020-02-14 15:45 | NUR ---
debbie called asking cm call him back rt question. carlitos called him back [phone], cm passed on my condolence for the loss of his . he thanked carlitos and wanted to speak with med assist. carlitos provided him [facility] office number for med assist.
== END 2020-02-12 17:29 | DRG 4 ==
LOC: ER 17:04 → EROBS 20:57 → ICU 20:57 → EROBS 20:57 → ICU 01-15 14:45
PROVIDERS: Hospitalist; Internal Medicine; Internal Medicine Pulmonary Disease; Nurse Practitioner; Nurse Practitioner Family; Pediatrics; Physician Assistant; Specialist; Surgery; ADMIT Hospitalist; ATTEND Hospitalist
DX: A41.02 Sepsis due to Methicillin resistant Staphylococcus aureus (principal); U07.1 COVID-19; J12.89 Other viral pneumonia; J96.01 Acute respiratory failure with hypoxia; E43 Unspecified severe protein-calorie malnutrition; K92.2 Gastrointestinal hemorrhage, unspecified; E87.0 Hyperosmolality and hypernatremia; E87.3 Alkalosis; I10 Essential (primary) hypertension; R65.20 Severe sepsis without septic shock; M19.91 Primary osteoarthritis, unspecified site; F32.9 Major depressive disorder, single episode, unspecified; F41.9 Anxiety disorder, unspecified; K21.9 Gastro-esophageal reflux disease without esophagitis; I50.9 Heart failure, unspecified; F17.210 Nicotine dependence, cigarettes, uncomplicated; D64.9 Anemia, unspecified; E87.6 Hypokalemia; I95.9 Hypotension, unspecified; E87.8 Other disorders of electrolyte and fluid balance, not elsewhere classified; Z68.35 Body mass index [BMI] 35.0-35.9, adult; K44.9 Diaphragmatic hernia without obstruction or gangrene; Z66 Do not resuscitate; Z79.899 Other long term (current) drug therapy
CPT/HCPCS: 10078; 50101; 50386; 50403; 50550; 56525; 62110; 62900